=== PATIENT | female | born 2000 | race Two or more races ===

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

== ENCOUNTER 2022-08-29 12:40 | Emergency (ER) | payer OTHER ==
[2022-08-29 13:04] VITALS: BP 134/77
--- NOTE | 2022-08-29 13:08 | ED Physician Documentation ---
History of Present Illness - Stated complaint Stated Complaint: MED REFILL - Chief complaint Chief Complaint: General - History obtained from History obtained from: Patient - History of Present Illness Timing: Today Pain level max: 0 Pain level now: 0 - Additonal information Additional information: patient with history of ulcerative colitis. states out of her lialda. requesting refill. no complaints. PD PAST MEDICAL HISTORY - Past Medical History Past Medical History: Yes Other Past Medical History: ulcerative colitis - Past Surgical History Past Surgical History: No - Present Medications Home Medications: Ambulatory Orders Medication Instructions Recorded Confirmed Amox/Clav 875/125 [Augmentin] 1 each PO Q12H #20 tablet 05/23/18 Mesalamine [Lialda] 4 tab PO DAILY 05/23/18 05/23/18 Mesalamine [Lialda] 4.8 gm PO DAILY #120 tab 08/29/22 - Allergies Allergies/Adverse Reactions: Allergies Allergy/AdvReac Type Severity Reaction Status Date / Time No Known Drug Allergies Allergy Verified 08/29/22 13:01 - Living Situation Living Arrangement: reports: At home - Social History Does the pt have substance abuse?: No - Family History Family history: reports: Non contributory PD ED PE NORMAL - Vitals Vital signs reviewed: Yes - General General: Alert and oriented X 3, No acute distress - HEENT HEENT: Moist mucous membranes - Derm Derm: Warm and dry - Neuro Neuro: Alert and oriented X 3 - Psych Psych: Normal mood, Normal affect Results - Vitals Vitals: Vital Signs - 24 hr 08/29/22 12:56 Temperature 37.1 C Heart Rate 82 Respiratory 16 Rate Blood Pressure 134/77 H O2 Saturation 98 Oxygen O2 Source Room air PD Medical Decision Making - ED course Complexity details: considered differential, d/w patient ED course: 22-year-old female requesting a refill of her Lialda. Asymptomatic. This will be refilled. No emergency medical condition at this time. This document was made in part using voice recognition software. While efforts are made to proofread this document, sound alike and grammatical errors may occur. Departure - Departure Disposition: 01 Home, Self Care Clinical Impression: Ulcerative colitis Qualifiers: Ulcerative colitis location: unspecified ulcerative colitis location Digestive disease complication type: without complication Qualified Code(s): K51.90 - Ulcerative colitis, unspecified, without complications Condition: Good Instructions: ED Colitis Ulcerative Follow-Up: ZAIN CHAVEZ ARNP [Primary Care Provider] - Prescriptions: Mesalamine [Lialda] 4.8 gm PO DAILY #120 tab Comments: [facility] [place]. Please follow-up with your doctor for further care. Please return if you worsen.
== END 2022-08-29 13:10 | disposition home or self-care (01) ==
LOC: ED 12:40
DX: Z76.0 Encounter for issue of repeat prescription (principal); K51.90 Ulcerative colitis, unspecified, without complications
CPT/HCPCS: 99281; 99282